=== PATIENT | male | born 1975 | race Caucasian/White ===

== ENCOUNTER 2023-05-02 20:56 | Emergency (ER) | payer OTHER, SELFPAY ==
[2023-05-02 20:58] VITALS: BP 139/80; PULSE 60; RESP 18; TEMP 36.4; O2SAT 100
--- NOTE | 2023-05-02 21:23 | ED.ANIMALBIT ---
HPI - Animal Bite General Chief Complaint: Animal Bite Stated Complaint: Dog Bite Source: patient Mode of arrival: ambulatory Limitations: no limitations History of Present Illness HPI narrative: this is a 48-year-old male that presents after his dog bit him apparently the storms at the dog off and caused dog bite wounds to his right forearm mildly gaping the anterior surface of his right forearm has good range of motion no numbness or tingling. complaint: animal bite Animal: dog Description of animal: household pet Mechanism: bite Location: other Location - Extremities: Right: forearm ( gaping laceration and puncture wound) Related Data Home Medications Medication Instructions Recorded Confirmed aspirin 81 mg tablet 81 mg PO DAILY 05/02/23 05/02/23 Allergies Allergy/AdvReac Type Severity Reaction Status Date / Time acetaminophen Allergy Mild Hives / Verified 05/02/23 21:13 [place] hydrocodone Allergy Mild Hives / Verified 05/02/23 21:13 [place] Review of Systems Review of Systems: All systems reviewed & are unremarkable except as noted in HPI and below PMFSH Past Medical History Medical History Patient denies medical problems Exam Const: General: healthy appearing Nutritional Appearance: well nourished Orientation/consciousness: patient oriented x3 Limitations: no limitations HENMT: Head: normal to inspection Eyes: Conjunctivae: conjunctivae normal Pupils: Equal, round and reactive pupils present EOM: EOMs intact bilaterally Neck: Neck: normal visual inspection Chest: Chest palpation & inspection: normal inspection of the chest Resp: Effort & Inspection: normal respiratory effort Auscultation: clear to auscultation bilaterally Cardio: Rate: regular rate Rhythm: regular rhythm GI: GI Palp: Yes Soft to palpation Skin: Wounds: wounds noted Other: 2cm gaping laceration anterior surface of his right forearm with some to other distinct puncture wounds. Neuro: General: patient oriented x3 Extrem: General: normal to inspection Psych: Mental Status: mental status grossly normal Affect: normal affect Course Course Emergency Course: Mildly gaping 2cm laceration right forearm and 2 other distinct mildly gaping puncture wounds. Dermabond was used and the 2cm laceration was repaired. Vital Signs Vital signs: Vital Signs Temperature 36.4 C L 05/02/23 20:58 Pulse Rate 60 05/02/23 20:58 Respiratory Rate 18 05/02/23 20:58 Blood Pressure 139/80 05/02/23 20:58 Pulse Oximetry 100 05/02/23 20:58 Oxygen Delivery Room Air 05/02/23 20:58 Temperature 36.4 C L 05/02/23 20:58 Pulse Rate 60 05/02/23 20:58 Respiratory Rate 18 05/02/23 20:58 Blood Pressure 139/80 05/02/23 20:58 Pulse Oximetry 100 05/02/23 20:58 Oxygen Delivery Room Air 05/02/23 20:58 Procedures Laceration Laceration 1: Date: 05/02/23 Time: 21:26 Site: upper extremity Side (If applicable): right Size (cm): 2 Description: linear Pre-repair: wound explored and irrigated ====== Skin Level ====== Skin layer closed with: dermabond ====== Subcutaneous Layer ====== ====== Muscle Layer ====== ====== Tendon Layer ====== Critical Care Time Critical Care Time Critical Care Time: No Discharge Plan Discharge Clinical Impression: Dog bite, Laceration Patient Disposition: Home, Self-Care Condition: Stable Instructions: Antibiotic Form, Animal Bite (ED), Laceration (ED) Additional Instructions: advised to take medicine as prescribed, Tylenol or Motrin for pain and follow with primary care physician if symptoms persist or worsen. Prescriptions: New amoxicillin-pot clavulanate [Augmentin] 500-125 mg tablet 1 tablet PO TID Qty: 20 0RF No Action Adult Aspirin 81 mg Tablet 81 mg PO DAILY Follow-up/[facility]
[2023-05-02] MEDS: AMOXICILLIN/CLAVULANATE K 875-125 MG TAB 1 TABLET PO (21:52)
[2023-05-02] MEDS: KETOROLAC (*BKC) 60 MG/2 ML VIAL IM (22:00)
--- NOTE | 2023-05-02 22:19 | PC.NURSE ---
[facility] bite incident report completed and faxed.
[2023-05-02 22:29] VITALS: BP 121/90; PULSE 71; RESP 20; TEMP 36.8; O2SAT 98
== END 2023-05-02 22:32 | disposition home or self-care (01) ==
PROVIDERS: Emergency Provider Emergency Medicine; PCP Family Medicine
DX: S51.851A Open bite of right forearm, initial encounter (principal); Z79.82 Long term (current) use of aspirin; W54.0XXA Bitten by dog, initial encounter
CPT/HCPCS: 12001; 96372; 99283; A9270; J1885